=== PATIENT | male | born 2000 | race Caucasian/White ===

== ENCOUNTER 2019-04-28 | Emergency (ER) | payer SELFPAY ==
[~2019-04-28] MED LIST: ADVAIR DISK1 INH; ALBUTEROL S2.5 MG/.5 IN; ARTIFICIAL TEAR1 OD; FLONASE NASAL50 MCG; NAPROSYN500 MG PO; ZYRTEC10 MG PO
[2019-04-28] MEDS ORDERED: AMOXICILLIN500 MG PO (18:46)
== END 2019-04-28 18:53 | disposition home or self-care (01) | DRG 159 ==
DX: S01.512A Laceration without foreign body of oral cavity, initial encounter (principal); X58.XXXA Exposure to other specified factors, initial encounter; Y93.83 Activity, rough housing and horseplay; Y92.009 Unspecified place in unspecified non-institutional (private) residence as the place of occurrence of the external cause

== ENCOUNTER 2019-08-07 | Emergency (ER) | payer SELFPAY ==
[~2019-08-07] MED LIST changes: +AMOXICILLIN500 MG PO
[2019-08-07] MEDS ORDERED: PROAIR HFA108 MCG/AC PO (08:43)
[2019-08-07] MEDS ORDERED: PREDNISONE50 MG PO (08:43)
[2019-08-07] MEDS ORDERED: PROVENTIL0.083 % IN (08:43)
== END 2019-08-07 10:05 | disposition home or self-care (01) | DRG 203 ==
DX: J45.901 Unspecified asthma with (acute) exacerbation (principal)

== ENCOUNTER 2021-03-02 11:48 | Emergency (ER) | payer OTHER ==
[~2021-03-02] VITALS: Ht 170.2 cm; Wt 80.9 kg
[~2021-03-02 11:48] MED LIST changes: +PREDNISONE50 MG PO; +PROAIR HFA108 MCG/AC PO; +PROVENTIL0.083 % IN
[2021-03-02 13:05] VITALS: BP 133/72
== END 2021-03-02 13:05 | disposition home or self-care (01) | DRG 556 ==
LOC: ED 11:48
DX: M25.512 Pain in left shoulder (principal); M54.50 Low back pain, unspecified; J45.909 Unspecified asthma, uncomplicated; V53.6XXA Passenger in pick-up truck or van injured in collision with car, pick-up truck or van in traffic accident, initial encounter